=== PATIENT | female | born 1975 | race Caucasian/White ===

== ENCOUNTER → 2019-08-10 12:40 | Outpatient (CLI) | payer OTHER, SELFPAY ==
--- NOTE | ~2019-08-10 | MM_ITS ---
EXAMINATION: MM scrn rob implant BI w tu HISTORY: Screening mammogram TECHNIQUE: Craniocaudal and mediolateral oblique 3-D tomosynthesis images with implant displacement a nd synthetic 2-D images were generated. Craniocaudal and mediolateral oblique views of the breasts wi thout implant displacement were obtained using full field digital mammography. CAD analysis was submi tted and interpreted. COMPARISON: 06/17/2018 BREAST PARENCHYMAL COMPOSITION: The breasts are heterogeneously dense, which may obscure small masses . FINDINGS: There are bilateral subpectoral silicone implants. There is no evidence of suspicious mass, calcification, or architectural distortion to suggest malignancy in either breast. There has been no suspicious interval change. IMPRESSION: 1. No mammographic evidence of malignancy. 2. Recommend routine screening mammography in one year. BI-RADS Category 1: Negative Reviewed, dictated and finalized at location A.
== END ==
PROVIDERS: Visit Provider Obstetrics & Gynecology
DX: Z12.31 Encounter for screening mammogram for malignant neoplasm of breast (principal)
CPT/HCPCS: 77063; 77067

== ENCOUNTER → 2020-09-02 14:06 | Outpatient (CLI) | payer OTHER, SELFPAY ==
--- NOTE | ~2020-09-02 | MM_ITS ---
EXAMINATION: MM scrn rob implant BI w tu HISTORY: Screening mammogram TECHNIQUE: Craniocaudal and mediolateral oblique 3-D tomosynthesis images with implant displacement a nd synthetic 2-D images were generated. Craniocaudal and mediolateral oblique views of the breasts wi thout implant displacement were obtained using full field digital mammography. CAD analysis was submi tted and interpreted. COMPARISON: 08/10/2019, 06/17/2018 BREAST PARENCHYMAL COMPOSITION: The breasts are heterogeneously dense, which may obscure small masses . FINDINGS: There is no evidence of suspicious mass, calcification, or architectural distortion to sugg est malignancy in either breast. There has been no suspicious interval change. IMPRESSION: 1. No mammographic evidence of malignancy. 2. Recommend routine screening mammography in one year. BI-RADS Category 1: Negative Reviewed, dictated and finalized at location A.
== END ==
PROVIDERS: Visit Provider Obstetrics & Gynecology
DX: Z12.31 Encounter for screening mammogram for malignant neoplasm of breast (principal)
CPT/HCPCS: 77063; 77067

== ENCOUNTER → 2021-10-24 09:49 | Outpatient (CLI) | payer OTHER, SELFPAY ==
--- NOTE | ~2021-10-24 | MM_ITS ---
EXAMINATION: MM scrn rob implant BI w tu HISTORY: Screening mammogram TECHNIQUE: Craniocaudal and mediolateral oblique 3-D tomosynthesis images with implant displacement a nd synthetic 2-D images were generated. Craniocaudal and mediolateral oblique views of the breasts wi thout implant displacement were obtained using full field digital mammography. CAD analysis was submi tted and interpreted. COMPARISON: 09/02/2020, 08/10/2019, 06/17/2018 BREAST PARENCHYMAL COMPOSITION: The breasts are heterogeneously dense, which may obscure small masses . FINDINGS: There is no evidence of suspicious mass, calcification, or architectural distortion to sugg est malignancy in either breast. There has been no suspicious interval change. IMPRESSION: 1. No mammographic evidence of malignancy. 2. Recommend routine screening mammography in one year. BI-RADS Category 1: Negative Reviewed, dictated and finalized at location A.
== END ==
PROVIDERS: PCP Family Medicine; Visit Provider Obstetrics & Gynecology
DX: Z12.31 Encounter for screening mammogram for malignant neoplasm of breast (principal)
CPT/HCPCS: 77063; 77067

== ENCOUNTER 2021-12-29 14:21 | Outpatient (CLI) | payer OTHER, SELFPAY ==
[2021-12-29 14:46] LABS: Basophils Absolute Auto 0.1 K/mm3 (0.0-0.1); Basophils Percent Auto 0.9 % (0.2-1.2); Eosinophils Absolute Auto 0.1 K/mm3 (0-0.3); Eosinophils Percent Auto 1.4 % (0-4.4); Hematocrit 41.4 % (37.0-47.0); Hemoglobin 13.6 g/dL (12.0-15.0); Immature Granulocyte Absolute 0.01 K/mm3 (0.00-0.031); Immature Granulocyte Percent A 0.2 % (0-0.5); Lymphocytes Absolute Auto 2.82 K/mm3 (0.9-3.2); Lymphocytes Percent Auto 42.8 % (18.3-44.2); Mean Corpuscular HGB Conc 32.9 g/dl (32-36); Mean Corpuscular Hemoglobin 29.2 pg (26-34); Mean Corpuscular Volume 88.8 fl (80-100); Mean Platelet Volume 9.8 fl (7.4-10.4); Monocytes Absolute Auto 0.5 K/mm3 (0.1-0.6); Monocytes Percent Auto 7.7 % (2.6-8.5); Neutrophils Absolute Auto 3.1 K/mm3 (1.3-6.7); Platelet Count Result 281 k/mm3 (150-375); Red Blood Count 4.66 M/mm3 (4.2-5.4); Red Cell Distribution Width 12.9 % (11.5-14.5); White Blood Count 6.6 K/mm3 (4.5-10.0)
== END 2021-12-29 14:22 | disposition home or self-care (01) ==
PROVIDERS: PCP Family Medicine; Visit Provider Obstetrics & Gynecology
DX: N92.6 Irregular menstruation, unspecified (principal)
CPT/HCPCS: 36415; 85025; 86850; 86900; 86901

== ENCOUNTER 2022-01-02 00:11 | Day surgery (SDC) | payer OTHER, SELFPAY ==
[2021-12-29 11:18] VITALS: BMI 24.2
--- NOTE | 2021-12-29 11:29 | PC.NURSE ---
Report to the Outpatient Waiting Room, entrance under the green pavilion located off [facility], at time 0730 on date _01/02/22. OR Time: 0930__. - You and your visitor will be asked to self-screen and do not enter if you have any COVID symptoms. - Only one visitor and NO children visitors are allowed at this time. - The patient visitor is requested to leave or wait in car when not with patient due to restrictions. - A mask is required within the hospital. Patients may have clear liquids (water, carbonated beverages, clear teas, apple juice) until 3 hours prior to surgery with a maximum of 20 ounces. - No food from midnight until time of surgery - Infants may have breast milk until 4 hours before surgery, formula 6 hours prior to surgery. - Children will be allowed to drink immediately following surgery. If applicable, please bring a bottle or sippy cup to assist with drinking. Juice, water, soda, and popsicles are readily available. For infants on formula, please bring formula the day of surgery. Pacifiers are allowed. Take the following medications with a SIP of water the morning of surgery: wellbutrin, celexa_ Medications to discontinue per physician _vitamins, supplements_ Date to take last dose___12/30/21 Please no make-up, nail lebanese, hairspray, perfume, deodorant, or body powder the day of surgery. No jewelry (including any body piercings) or valuables the day of surgery, leave them at home. Please take a shower or bath the night before, or the morning of, surgery with an antibacterial soap. Wear comfortable, loose fitting clothing. Children are encouraged to wear pajamas. - Jewelry must be removed prior to entering the operating room. Rings and piercings that are not removed may be cut off. - The hospital will not accept responsibility for valuables. - Please leave all valuables, including medications, at home the day of surgery. If you are going home after surgery, a licensed driver operator must drive you home. - NO public transportation without another adult. - We recommend that an adult stay with you for 24 hours following discharge. - We also recommend that you do not drive, make important decision, drink alcoholic beverages, or take any drugs that were not prescribed by your health care provider for at least 24 hours after your discharge time. For Pediatric surgeries, we recommend two adults accompany the child home (only one inside the building at this time). Follow any additional instructions given to you from your surgeon. If you or anyone in your household have experienced Covid symptoms in the past week, please notify your surgeon or the nurse liaison at the phone number below for possible testing. Telephone instructions given to Terra Garcia and asked if any additional questions and then verbalized understanding. Patient advised to call surgeon office or pre surgery nurse liaison [phone] if any additional questions.
--- NOTE | 2021-12-30 07:22 | PM.IMHP ---
H&P: HPI History of Present Illness Date/Time: 12/30/21 07:22 Chief Complaint: fibroid uterus. Bleeding refractory to medical therapy. Stress urinary continence family history of ovarian cancer Narrative: this 46-year-old female multiparous who admitted for robotic hysterectomy and probable bilateral salpingo-oophorectomy sec a as well as DVT secondary to fibroid uterus pelvic pain bleeding. She has family history of ovarian cancer and she is strongly consider removal of the ovaries. She understands that this would make her permanently postmenopausal and the psychologic and physiologic changes associated with that have been reviewed in great detail and will be reviewed again on admission. Risks and benefits of the procedure reviewed including not exclusive of , aspiration pneumonia bleeding, transfusion, perforation injury to bowel, bladder, ureters, or other internal organs with need for open laparotomy the risk of mesh has also been reviewed in great detail. She received the [employer] handout entitled hysterectomy as well as the de Josemanuel handout. She received the TVT handout and it was reviewed in great detail PMFSH Family History Family History Grandparent Cerebrovascular accident Mother Family history of malignant neoplasm of ovary Father Malignant neoplasm of prostate Other Family history of coronary artery disease Social History Social History Smoking packs per day: 0.5 Smoking cigarettes per day: 10.0 Years smoked: 15 Smoking pack-years: 7.50 Smoking status: Former smoker Tobacco type: cigarettes Smoking end date: 02/14/18 Alcohol intake: never Substance use: never Spiritual care concerns: No Meds Home Medications and Allergies Home Medications Medication Instructions Recorded Confirmed Type bupropion HCl 75 mg tablet 75 mg PO DAILY 12/29/21 12/29/21 History chromium picolinate 200 mcg capsule 200 mcg PO DAILY 12/29/21 12/29/21 History citalopram 40 mg tablet (Celexa) 40 mg PO DAILY 12/29/21 12/29/21 History fexofenadine 30 mg tablet 180 mg PO DAILY 12/29/21 12/29/21 History green tea leaf extract (Green Tea 1 cap PO DAILY 12/29/21 12/29/21 History capsule) magnesium 1 tablet PO DAILY 12/29/21 12/29/21 History Allergies Allergy/AdvReac Type Severity Reaction Status Date / Time codeine Allergy Unknown Nausea and Verified 12/29/21 11:20 Vomiting latex Allergy Unknown Rash Verified 12/29/21 11:19 NARCOTICS Allergy Unknown VOMIT Uncoded 09/02/17 15:48 HYDROCODONE BIT AdvReac Severe N/V Uncoded 09/02/17 15:48 Exam Const: General: cooperative, healthy appearing and comfortable Nutritional Appearance: average body habitus Orientation/consciousness: oriented to person, oriented to place and oriented to time Chest: Chest palpation & inspection: normal inspection of the chest Resp: Effort & Inspection: normal respiratory effort Cardio: Rate: regular rate Rhythm: regular rhythm GI: Inspection: normal to inspection : Speculum Exam - Vagina: normal appearance of the vagina Speculum Exam - Cervix: normal appearance of the cervix Bimanual exam- vagina & uterus: enlarged Bimanual Exam- Adnexa, other: normal adnexae Assessment and Plan Assessment and plan (1) Uterine fibroid: Code(s): D25.9 - Leiomyoma of uterus, unspecified Status: Acute (2) Pelvic pain: Code(s): R10.2 - Pelvic and perineal pain Status: Acute (3) Vaginal bleeding: Code(s): N93.9 - Abnormal uterine and vaginal bleeding, unspecified Status: Acute (4) RANDAL (stress urinary incontinence, female): Code(s): N39.3 - Stress incontinence (female) (male) Status: Acute Plan robotic total vaginal hysterectomy with possible bilateral salpingo-oophorectomy and tension-free vaginal tape
[2022-01-02] VITALS (12 sets, daily range): BP systolic 100–122; BP diastolic 54–72; PULSE 58–81; RESP 11–16; TEMP 36.2–36.7; O2SAT 93–100
--- NOTE | 2022-01-02 06:16 | WPDHPUPDATE1 ---
History and Physical Update Update Date/Time: 01/02/22 06:16 History and Physical has been reviewed, including an updated exam of the patient. There are NO changes in the patient's condition. Risks, benefits, and alternatives have been discussed and questions answered. Patient agrees to proceed with procedure.
[2022-01-02] MEDS: LACTATED RINGERS 1,000 ML 30 ML IV CONT ×2 (08:05→11:00)
[2022-01-02] MEDS: ACETAMINOPHEN 500 MG TABLET 1000 MG PO (08:06)
--- NOTE | 2022-01-02 08:12 | P.PNAN_ITS ---
Anes - Initial Pre Proc Eval Procedure: Operation Date: 01/02/22 09:30 Proposed Procedures p Robotic Assisted Total Vaginal Hysterectomy with Possible Bilateral Salpingo- Oophorectomy - Harris Akers MD s Tension Vaginal Taping - Harris Akers MD Date/Time: 01/02/22 08:12 Surgeon: Harris Akers MD Pre Op Diagnosis: irregular bleeding, fibroids , pelvic pain Patient Data Age: 46 Gender: F Height: 1.68 m Weight: 68 kg Allergies Allergy/AdvReac Type Severity Reaction Status Date / Time codeine Allergy Unknown Nausea and Verified 01/02/22 08:13 Vomiting latex Allergy Unknown Rash Verified 01/02/22 08:13 NARCOTICS Allergy Unknown VOMIT Uncoded 01/02/22 08:13 HYDROCODONE BIT AdvReac Severe N/V Uncoded 01/02/22 08:13 Home Medications Medication Instructions Recorded Confirmed Type bupropion HCl 75 mg tablet 75 mg PO DAILY 12/29/21 12/29/21 History chromium picolinate 200 mcg capsule 200 mcg PO DAILY 12/29/21 12/29/21 History citalopram 40 mg tablet (Celexa) 40 mg PO DAILY 12/29/21 12/29/21 History fexofenadine 30 mg tablet 180 mg PO DAILY 12/29/21 12/29/21 History green tea leaf extract (Green Tea 1 cap PO DAILY 12/29/21 12/29/21 History capsule) magnesium 1 tablet PO DAILY 12/29/21 12/29/21 History hydrocodone 5 mg-acetaminophen 325 1 tablet PO Q4H PRN pain #30 tabs 01/02/22 Rx mg tablet Patient hx anesthesia problems: none Family hx anesthesia problems: none Results Review: All pre-operative results and documents have been reviewed as part of the pre- operative evaluation. [facility] Past Medical History Medical History (Updated 01/02/22 @ 08:13 by Harris Lombardo MD) Anxiety Surgical History Surgical History (Updated 01/02/22 @ 08:13 by Harris Lombardo MD) H/O sinus surgery Family History Family History Grandparent Cerebrovascular accident Mother Family history of malignant neoplasm of ovary Father Malignant neoplasm of prostate Other Family history of coronary artery disease Social History Social History Smoking packs per day: 0.5 Smoking cigarettes per day: 10.0 Years smoked: 15 Smoking pack-years: 7.50 Smoking status: Former smoker Tobacco type: cigarettes Smoking end date: 02/14/18 Alcohol intake: never Substance use: never Living arrangements: with family Spiritual care concerns: No Anes - Eval Final PreProcedure Day of Procedure 01/02/22 08:12 Patient weight: normal Heart: regular rate and rhythm Lungs: clear to auscultation Airway: Mallampati scale class 1 Neurological: alert and oriented Last oral intake: >/= 8 hours ASA classification: II Emergent: no Anesthesia type and monitoring: general ETT and standard monitoring Results Review: All pre-operative results and documents have been reviewed as part of the pre- operative evaluation. Informed Consent: The patient's anesthetic plan and its attendant risks and benefits were discussed with the patient/family/POA. Questions were solicited and answers provided to the satisfaction of the patient/family/POA.
[2022-01-02] MEDS: KETOROLAC 15 MG/ML VIAL (*BKC) IV PUSH (08:40)
[2022-01-02] MEDS: SCOPOLAMINE 1.5 MG PATCH TRANSDERM (08:53)
[2022-01-02] MEDS: ceFAZolin 2 GM/D5W 50 ML 2 GM/50 ML BAG IVPB (09:37)
--- NOTE | 2022-01-02 10:54 | W.PM.PROC2 ---
Procedure Note - Detailed Date of Procedure 01/02/22 Pre-op Diagnosis irregular bleeding, fibroids , pelvic pain,valerio Post-op Diagnosis Same Procedure Performed Robotic total vaginal hysterectomy and bilateral salpingo-oophorectomy. Cystoscopy. Tension-free vaginal tape Surgeon Harris Akers MD Anesthesia General Indications This is a 46-year-old female with a family history of breast cancer a fibroid uterus and stress urinary incontinence. Findings Large fibroid uterus. Normal-appearing ovaries and tubes. Overactive urethra Description of Procedure The patient was prepped draped in the normal sterile fashion placed in the dorsal lithotomy position. Under excellent general trach anesthesia weighted speculum was placed in posterior fornix vagina. Anterior lip of the cervix grasped with a single-tooth tenaculum. Uterus sounded to 10cm. Serial dilatation with fragmented dilators performed followed by the passage of a 10. SHRUTHI and the 3. Cold cup. Next the 16 British catheter was placed in the bladder. The weighted speculum were was removed and the gloves were changed. A supraumbilical incision made. The Veress needle passed in the abdomen. The abdomen filled with CO2 gas to 15 of mercury. The 8mm trocar advanced in the abdomen. Downside visualized no injury seen. Gas reattached. Patient placed in Trendelenburg and left and right lateral quadrant incisions made. These were advanced under direct visualization assuring no injury. A right upper quadrant incision made and the 8mm trocar advanced under direct visualization assuring no injury. The robot was docked. Attention was turned to the mortgage loan counselor. The left round ligament was grasped, burned, cut. Anteriorly a bladder flap was formed by sharply dissecting the peritoneum and reflecting the bladder caudally away from the cervix to the opposite round ligament which was clamped, burned, cut. Next the left infundibulopelvic structure was skeletonized. This was clamped, burned, cut and brought to the level of previously cut round ligament. Removing the right adnexa the infundibulopelvic structure on the right skeletonized. This was clamped, burned, cut and brought to level of previously cut round ligament. Next the cardinal broad ligaments on the left were serially skeletonized clamping burning cutting and hugging the cervix and uterus until the tortuous blood vessels on the left could be seen. These were individually clamped, burned, cut. Next the cardinal broad ligaments on the right were serially skeletonized clamping burning cutting and hugging the cervix and uterus. Once the uterine vessels could be seen on the right these were individually clamped, burned, cut. Blanching of the uterus was seen. A large fibroid and a pedunculated form was seen on the uterus. The uterus ovaries tubes were passed through the vagina after the colpotomy incision was made. The vagina was closed with continuous running 0V lock from lateral edge to lateral edge back to the midline. Irrigation undertaken until clear. All pedicles appeared dry. The instruments removed from the vagina. The robot was undocked. The gas removed from the abdomen. The incisions closed with 4-0 Monocryl and glue after gas removed from the abdomen. Attention was then turned to the TVT portion. The 16 British catheter was directed with a urethral guide. An infra urethral incision made at the midportion and this the lateral bladder space is emptied by ball blunt dissection by bilaterally. The TVT device was passed into the right retropubic bladder space after the urethra had been retracted to the opposite side brought up through with 30 degree angle through the fascia and skin. The urethra was retracted to the opposite side and this was repeated on the contralateral side. The 16 British catheter was removed and a 30degree cystoscope was inserted. No injury seen. The catheter was then replaced. The tension-free tape was brought u
[2022-01-02] MEDS: fentaNYL CITRATE INJ (*CRX) 100 MCG/2 ML VIAL 25 MCG IV PUSH (11:38)
--- NOTE | 2022-01-02 12:34 | ADMGEN ---
1230-This patient, Terra Garcia, was admitted to OB 2nd Floor Room 283-00. Patient/family oriented to hospital policies and general routines including ID bracelet, bed and alarms, visiting hours, pain management, procedures, bathroom and other care routines, personal items, smoking policy, room service/diet, and visiting hours. Information on how to activate the Rapid Response Team has been discussed. Patient/Family are encouraged to report perceived risks to care and to ask questions if they do not understand what they are told or what they should do.
[2022-01-02] MEDS: DEXTROSE 5%/LACTATED RINGERS 1,000 ML 125 ML IV CONT (12:43)
[2022-01-02] MEDS: KETOROLAC 30 MG/ML VIAL (*BKC) IV PUSH (12:54)
[2022-01-02] MEDS: HYDROcodone/acetaminophen (*CRX) 5-325 MG TABLET 1 TAB PO ×2 (16:28→21:15)
[2022-01-02] MEDS: DOCUSATE SODIUM 100 MG CAPSULE PO (16:28)
[2022-01-02] MEDS: IBUPROFEN 600 MG TABLET PO (21:15)
[2022-01-03] VITALS: BP 109/61; PULSE 80; RESP 16; TEMP 36.9
[2022-01-03] MEDS: diphenhydrAMINE HCl CAP 25 MG CAPSULE (00:07)
[2022-01-03 04:45] VITALS: BP 105/64; PULSE 85; RESP 16; TEMP 36.9
[2022-01-03] MEDS: IBUPROFEN 600 MG TABLET PO (04:48)
[2022-01-03] MEDS: HYDROcodone/acetaminophen (*CRX) 5-325 MG TABLET 1 TAB PO ×2 (04:48→09:50)
[2022-01-03 05:38] LABS: Basophils Absolute Auto 0.1 K/mm3 (0.0-0.1); Basophils Percent Auto 0.3 % (0.2-1.2); Eosinophils Percent Auto 0.1 % (0-4.4); Hematocrit 36.8 % (37.0-47.0); Hemoglobin 12.3 g/dL (12.0-15.0); Immature Granulocyte Absolute 0.06 K/mm3 (0.00-0.031); Immature Granulocyte Percent A 0.4 % (0-0.5); Lymphocytes Absolute Auto 2.52 K/mm3 (0.9-3.2); Lymphocytes Percent Auto 17.6 % (18.3-44.2); Mean Corpuscular HGB Conc 33.4 g/dl (32-36); Mean Corpuscular Hemoglobin 29.1 pg (26-34); Mean Corpuscular Volume 87.2 fl (80-100); Mean Platelet Volume 10.4 fl (7.4-10.4); Monocytes Absolute Auto 1.1 K/mm3 (0.1-0.6); Monocytes Percent Auto 7.9 % (2.6-8.5); Neutrophils Absolute Auto 10.5 K/mm3 (1.3-6.7); Neutrophils Percent Auto 73.7 % (45.5-73.1); Platelet Count Result 261 k/mm3 (150-375); Red Blood Count 4.22 M/mm3 (4.2-5.4); Red Cell Distribution Width 12.9 % (11.5-14.5); White Blood Count 14.3 K/mm3 (4.5-10.0)
--- NOTE | 2022-01-03 07:12 | P.DS_ITS ---
DS: Admitting Diagnosis Discharge Date 01/03/2022 Admitting Diagnosis symptomatic uterine fibroids DS: Discharge Diagnosis Discharge Diagnosis (1) RANDAL (stress urinary incontinence, female): Code(s): N39.3 - Stress incontinence (female) (male) Status: Acute (2) Vaginal bleeding: Code(s): N93.9 - Abnormal uterine and vaginal bleeding, unspecified Status: Acute (3) Pelvic pain: Code(s): R10.2 - Pelvic and perineal pain Status: Acute (4) Uterine fibroid: Code(s): D25.9 - Leiomyoma of uterus, unspecified Status: Acute DS: Summary Hospital Course Reason for hospitalization: patient was admitted for robotic hysterectomy bilateral salpingo-oophorectomy and TVT Hospital Course: patient was admitted for robotic total vaginectomy bilateral salpingo- oophorectomy and tension-free vaginal tape. The procedure was unremarkable. Her 24hour course was unremarkable as well. She remained afebrile. She was up, voiding without difficulty, ambulating, generally without complaints. Time Spent with Patient Time attestation: Total time spent providing and/or coordinating discharge services: DS: Data Data Completed and Pending Pending studies at discharge: Pending at discharge 01/02/22 10:20 Surgical [PTH] Routine Labs on day of discharge: Labs from last 24 hours 01/03/22 04:43 WBC 14.3 H RBC 4.22 Hgb 12.3 Hct 36.8 L MCV 87.2 MCH 29.1 MCHC 33.4 RDW 12.9 Plt Count 261 MPV 10.4 Immature Gran % (Auto) 0.4 Neut % (Auto) 73.7 H Lymph % (Auto) 17.6 L Mclean % (Auto) 7.9 Eos % (Auto) 0.1 Baso % (Auto) 0.3 Lymph # (Auto) 2.52 Mclean # (Auto) 1.1 H Eos # (Auto) 0.0 Baso # (Auto) 0.1 Abs Immat Gran (auto) 0.06 H Absolute Neuts (auto) 10.5 H Absolute Nucleated RBC 0.0 Nucleated RBC % 0.0 Discharge Plan Discharge Patient Disposition: Home, Self-Care Discharge Instructions: Remove the Scopolamine patch that was placed behind your ear in 72 hours or less. Wash your hands after touching. Stand Alone Forms: General Discharge Instructions Follow-up/Referrals: Harris Marquis MD [Physician] - Discharge Medications: New hydrocodone-acetaminophen 5-325 mg tablet 1 tablet PO Q4H PRN (Reason: pain) Qty: 30 0RF Continued citalopram [Celexa] 40 mg Tablet 40 mg PO DAILY chromium picolinate 200 mcg Capsule 200 mcg PO DAILY fexofenadine 30 mg Tablet 180 mg PO DAILY bupropion HCl 75 mg Tablet 75 mg PO DAILY Rx Instructions: administer 6 hours apart Green Tea Capsule 1 cap PO DAILY magnesium Tablet 1 tablet PO DAILY
--- NOTE | 2022-01-03 07:15 | PM.GYNPNOP ---
POULTRY PROCESSOR - A/P Postoperative Procedures: Procedures Operation Date: 01/02/22 09:30 Actual Procedure Side Surgeon p Robotic Assisted Total Vaginal Hysterectomy with Bilateral Salpingo-Oophorectomy, Removal of Intrauterine Device Not Applicable Harris Akers MD s Tension Vaginal Taping Not Applicable Harris Akers MD Postoperative day: 1 Postoperative status: doing well Postoperative plan: routine post-op care, advance diet and discharge Time Spent With Patient Time: Total time spent is greater than 50% in coordination of care (as documented) at patient's floor/unit and/or counseling patient: Time with patient: less than 15 minutes POULTRY PROCESSOR- PN:Subj Post-Op Subjective Date/time seen: 01/03/22 07:15 Subjective: patient has no complaints and patient desires discharge POULTRY PROCESSOR - PN: Obj Data Vital Signs Vital Signs: Vital Signs - 24 hr 01/02/22 08:49 01/02/22 11:00 01/02/22 11:15 Temperature 98.1 F 97.1 F L Pulse Rate 58 L 70 81 Respiratory Rate 16 11 L 16 Blood Pressure 109/66 109/66 122/72 Pulse Oximetry 99 99 100 Oxygen Delivery Room Air Simple Face Mask Simple Face Mask Oxygen Flow Rate 8 8 01/02/22 11:25 01/02/22 11:30 01/02/22 11:45 Temperature Pulse Rate 74 76 Respiratory Rate 16 12 Blood Pressure 111/62 107/55 L Pulse Oximetry 98 98 93 Oxygen Delivery Room Air Room Air Room Air Oxygen Flow Rate 01/02/22 12:00 01/02/22 12:15 01/02/22 12:40 Temperature Pulse Rate 76 73 64 Respiratory Rate 12 12 14 Blood Pressure 106/57 L 100/60 Pulse Oximetry 96 95 97 Oxygen Delivery Room Air Room Air Room Air Oxygen Flow Rate 01/02/22 12:40 01/02/22 16:09 01/02/22 16:59 Temperature 97.5 F L 97.8 F Pulse Rate 64 72 72 Respiratory Rate 14 16 16 Blood Pressure 108/62 110/65 Pulse Oximetry 97 98 98 Oxygen Delivery Room Air Oxygen Flow Rate 01/02/22 19:50 01/03/22 00:00 01/03/22 04:45 Temperature 98.1 F 98.4 F 98.4 F Pulse Rate 76 80 85 Respiratory Rate 16 16 16 Blood Pressure 102/54 L 109/61 105/64 Pulse Oximetry Oxygen Delivery Oxygen Flow Rate Intake/Output Intake/Output: Intake & Output 12/31/21 01/01/22 01/02/22 01/03/22 23:59 23:59 23:59 23:59 Intake Total 2970 700 Output Total 2335 1250 Balance 635 -550 Meds/Results Medications: Active Medications Generic Name Dose Route Start Last Admin Trade Name Freq PRN Reason Stop Dose Admin Hydrocodone Bitart/Acetaminophen 1 tab 01/02/22 12:26 01/03/22 04:48 Hydrocodone/Acetaminophen (*Crx) 5-325 Mg Tablet PO 1 tab Q3H PRN Administration Pain Rated 5 or Less Hydrocodone Bitart/Acetaminophen 1 tab 01/02/22 12:26 Hydrocodone/Acetaminophen (*Crx) 10-325 Mg Tablet PO Q3H PRN Pain Rated 6 or Greater Docusate Sodium 100 mg 01/02/22 17:00 01/02/22 16:28 Docusate Sodium 100 Mg Capsule PO 100 mg BID MIKEL Administration Enoxaparin Sodium 40 mg 01/03/22 09:00 Enoxaparin 40 Mg/0.4 Ml Syringe SUB-Q DAILY MIKEL Ibuprofen 600 mg 01/02/22 12:26 01/03/22 04:48 Ibuprofen 600 Mg Tablet PO 600 mg Q6H PRN Administration Cramping Ketorolac Tromethamine 30 mg 01/02/22 12:26 01/02/22 12:54 Ketorolac 30 Mg/Ml Vial (*Bkc) IV PUSH 01/07/22 12:25 30 mg Q6H PRN Administration Pain Rated 4-6 Naloxone HCl 0.1 mg 01/02/22 12:26 Naloxone Hcl 0.4 Mg/Ml Vial IV PUSH Q2M PRN Respiratory rate less than 10 Ondansetron HCl 4 mg 01/02/22 12:26 Ondansetron Inj 4 Mg/2 Ml Vial IV PUSH Q6H PRN Nausea And Vomiting Simethicone 80 mg 01/02/22 12:26 Simethicone 80 Mg Tab.Chew PO Q2H PRN Gas Labs CBC & Chem 7: 01/03/22 04:43 Labs: Laboratory Results - last 24 hr 01/03/22 04:43 WBC 14.3 H RBC 4.22 Hgb 12.3 Hct 36.8 L MCV 87.2 MCH 29.1 MCHC 33.4 RDW 12.9 Plt Count 261 MPV 10.4 Immature Gran % (Auto) 0.4 Neut % (Auto) 73.7 H Lymph % (Auto) 17.6 L
--- NOTE | 2022-01-03 08:23 | PC.NURSE ---
Assisted patient up to the bathroom but she was unable to void, assisted back to bed. Tolerated well. Told to call out when she felt the need to void.
[2022-01-03 08:25] VITALS: BP 104/55; PULSE 82; RESP 18; TEMP 36.3; O2SAT 98
[2022-01-03] MEDS: ENOXAPARIN 40 MG/0.4 ML SYRINGE SUB-Q (09:49)
== END 2022-01-03 10:15 | disposition home or self-care (01) ==
LOC: ANHSURGERY 10:04 → ANHOB2 12:28
PROVIDERS: PCP Family Medicine; Visit Provider Obstetrics & Gynecology
PROC: (CPT 58552; principal; 2022-01-02 09:30)
PROC: 0TSD0ZZ Reposition Urethra, Open Approach (ICD-10-PCS; CPT 58552; 2022-01-02 09:30)
DX: N93.9 Abnormal uterine and vaginal bleeding, unspecified (principal); N83.02 Follicular cyst of left ovary; D25.1 Intramural leiomyoma of uterus; N72 Inflammatory disease of cervix uteri; N39.3 Stress incontinence (female) (male); R10.2 Pelvic and perineal pain; Z80.3 Family history of malignant neoplasm of breast; Z80.41 Family history of malignant neoplasm of ovary; Z87.891 Personal history of nicotine dependence
CPT/HCPCS: 58552; 57288; S2900; 36415; 85025; 88307; 99199; A9270; C1771; J0690; J1100; J1650; J1885; J2250; J2405; J2704; J2710; J3010; J7030; J7120; J7121

== ENCOUNTER → 2023-01-08 10:12 | Outpatient (CLI) | payer OTHER, SELFPAY ==
--- NOTE | ~2023-01-08 | MM_ITS ---
EXAMINATION: MM scrn rob implant BI w tu HISTORY: Screening mammogram TECHNIQUE: Craniocaudal and mediolateral oblique 3-D tomosynthesis images with implant displacement a nd synthetic 2-D images were generated. Craniocaudal and mediolateral oblique views of the breasts wi thout implant displacement were obtained using full field digital mammography. CAD analysis was submi tted and interpreted. COMPARISON: 10/24/2021, 09/02/2020, 08/10/2019 BREAST PARENCHYMAL COMPOSITION: The breasts are heterogeneously dense, which may obscure small masses . FINDINGS: RIGHT BREAST: There is possible architectural distortion in the middle third of the upper outer quadr ant of the breast. In addition, there is a possible mass in the posterior third of the upper breast o n the implant displaced views. LEFT BREAST: There is no evidence of suspicious mass, calcification, or architectural distortion to s uggest malignancy. There has been no significant interval change. IMPRESSION: 1. Possible architectural distortion and mass of the right breast. 2. Additional mammographic views and possible breast ultrasound are recommended. BI-RADS Category 0: Incomplete: Needs additional imaging evaluation. Reviewed, dictated and finalized at location A. IMPRESSION: 1. Possible architectural distortion and mass of the right breast. 2. Additional mammographic views and possible breast ultrasound are recommended . BI-RADS Category 0: Incomplete: Needs additional imaging evaluation.
== END ==
PROVIDERS: PCP Obstetrics & Gynecology; Visit Provider Obstetrics & Gynecology
DX: Z12.31 Encounter for screening mammogram for malignant neoplasm of breast (principal); Z98.82 Breast implant status; R92.8 Other abnormal and inconclusive findings on diagnostic imaging of breast
CPT/HCPCS: 77063; 77067

== ENCOUNTER 2023-02-02 09:15 | Outpatient (CLI) | payer OTHER, SELFPAY ==
--- NOTE | ~2023-02-02 | MMUS_ITS ---
EXAMINATION: MM diag rob implant RT w tu, US breast RT complete HISTORY: Respiratory architectural distortion on prior screening mammogram. TECHNIQUE: Additional 3-D tomosynthesis images of the right breast were performed and synthetic 2-D i mages were generated. CAD analysis was submitted and interpreted. High resolution complete right quoc st ultrasound was performed. COMPARISON: 01/08/2023 BREAST PARENCHYMAL COMPOSITION: The breasts are heterogeneously dense, which may obscure small masses FINDINGS: MAMMOGRAPHIC FINDINGS: There is a right subpectoral breast implant. There are no discrete suspicious cluster of calcificatio ns or definite architectural distortion. There is a mass in the upper central aspect of the right mark ast posteriorly adjacent to the chest wall. ULTRASOUND: Complete US of all 4 quadrants of the right breast and retroareolar region was reviewed. At 12:00, 4 cm from the nipple there is a complicated cyst with low level internal echoes measuring 1 cm, corresp onding to the mammographic finding. At 3:00 near the arterial lobe there is a 4 mm minimally complica nir cyst. At 10:00, 5 cm from the nipple adjacent to the breast implant there is a slightly irregular shaped hypoechoic mass measuring 5 x 4 x 3 mm just superficial to the breast implant. There is mixed posterior attenuation. No internal vascularity. IMPRESSION: 1. Right breast mass at 10:00, 5 cm from the nipple with slightly irregular margins and hypoechoic in ternal echotexture measuring 5 mm maximum dimension. 2. Ultrasound-guided right breast biopsy recommended. BI-RADS category 4, suspicious findings. Reviewed, dictated and finalized at location A. IMPRESSION: 1. Right breast mass at 10:00, 5 cm from the nipple with slightly irregular mar gins and hypoechoic internal echotexture measuring 5 mm maximum dimension. 2. Ultrasound-guided right breast biopsy recommended. BI-RADS category 4, suspicious findings.
== END 2023-02-02 09:16 ==
PROVIDERS: PCP Obstetrics & Gynecology; Visit Provider Obstetrics & Gynecology
DX: R92.8 Other abnormal and inconclusive findings on diagnostic imaging of breast (principal)
CPT/HCPCS: 76641; 77061; 77065; G0279

== ENCOUNTER 2023-08-18 07:23 | Emergency (ER) | payer OTHER, SELFPAY ==
[2023-08-18 07:39] VITALS: BP 132/83; PULSE 76; PULSE 82; RESP 16; RESP 20; TEMP 36.5; O2SAT 100
[2023-08-18] MEDS: methylPREDNISolone SOD SUCC 40 MG VIAL IV PUSH (07:57)
[2023-08-18] MEDS: FAMOTIDINE 20 MG/2 ML VIAL IV PUSH (07:57)
[2023-08-18 08:09] LABS: Strep Group A RT-PCR NOT DETECTED (Negative)
--- NOTE | 2023-08-18 08:11 | ED.GENADULT ---
HPI - General Adult General Chief complaint: Allergic Reaction Stated complaint: alletgic reation Time Seen by Provider: 08/18/23 07:28 History of Present Illness HPI narrative: Patient is a 47-year-old female who presents ER with concerns for swelling to the right lower lip. She woke up this morning and noticed that her right lower lip was swollen and she now feels like she has some tingling to her right face. She has not started any new medications. No difficulty breathing or swelling but does have some sore throat and a little discomfort to the right neck. No chest pain or chest pressure. Has history of sensitive skin. She does have a blemish to the right lower lip that has been ongoing over last 2-3 days. Denies any biting of the lip. No wheezing. No itching. Patient did take a Benadryl. Related Data Home Medications Medication Instructions Recorded Confirmed bupropion HCl 75 mg tablet 75 mg PO DAILY 12/29/21 12/29/21 chromium picolinate 200 mcg capsule 200 mcg PO DAILY 12/29/21 12/29/21 citalopram 40 mg tablet (Celexa) 40 mg PO DAILY 12/29/21 12/29/21 fexofenadine 30 mg tablet 180 mg PO DAILY 12/29/21 12/29/21 green tea leaf extract (Green Tea 1 cap PO DAILY 12/29/21 12/29/21 capsule) magnesium 1 tablet PO DAILY 12/29/21 12/29/21 Allergies Allergy/AdvReac Type Severity Reaction Status Date / Time codeine Allergy Intermediate Nausea and Verified 01/02/22 08:14 Vomiting latex Allergy Intermediate Rash Verified 01/02/22 08:14 HYDROCODONE BIT AdvReac Severe N/V Uncoded 01/02/22 08:13 Review of Systems Review of Systems: All systems reviewed & are unremarkable except as noted in HPI and below Constitutional: Constitutional: Reports no additional constitutional complaints ENT: Denies nasal congestion and Denies sore throat Cardiovascular: Cardiovascular: Reports no additional cardiovascular complaints Respiratory: Respiratory: Reports no additional respiratory complaints Gastrointestinal: Gastrointestinal: Reports no additional gastrointestinal complaints Integumentary/Breasts: Skin/Breast: Reports erythema, Denies rash and Denies skin ulcer Neurologic: Denies headache(s) and Denies focal weakness Comments: right facial tingling Allergic/Immunologic: Allergic/Immunologic: Reports lip swelling, Denies throat swelling, Denies tongue swelling and Denies wheezing PMFSH Past Medical History Medical History (Updated 08/18/23 @ 09:40 by Huan Aburto MD) Anxiety Surgical History Surgical History (Updated 01/02/22 @ 08:13 by Harris Lombardo MD) H/O sinus surgery Family History Family History Grandparent Cerebrovascular accident Mother Family history of malignant neoplasm of ovary Father Malignant neoplasm of prostate Other Family history of coronary artery disease Social History Social History Smoking packs per day: 0.5 Smoking cigarettes per day: 10.0 Years smoked: 15 Smoking pack-years: 7.50 Smoking status: Former smoker Tobacco type: cigarettes Smoking end date: 02/14/18 Alcohol intake: never Substance use: never Living arrangements: with family Spiritual care concerns: No Exam Narrative: GENERAL: Well-appearing, well-nourished, and in no acute distress. HEAD: Normocephalic, atraumatic. EYES: PERRL and EOMI. ENT: Mucous membranes moist. Mild edema right lower lip just superior to a skin blemish. Blemish has mild induration. No dental abscess. Normal appearing posterior oropharynx without tonsillar hypertrophy or uvular edema. NECK: Mild right-sided lymphadenopathy along the anterior cervical chain. CHEST: Clear to auscultation. No respiratory distress. HEART: Regular rate and rhythm. Normal peripheral pulses. EXTREMITIES: Normal range of motion. No edema. NEURO: Alert and oriented x3. PSYCH: Normal mood and affect.
--- NOTE | 2023-08-18 08:18 | PC.NURSE ---
Pt ambulatory independently to restroom. No gait abnormalities noted.
[2023-08-18 08:20] LABS: Influenza A QL RT-PCR Negative (Negative); Influenza B QL RT-PCR Negative (Negative); RSV RNA, RT-PCR Negative (Negative); SARS-CoV-2 RNA PCR Negative (Negative)
[2023-08-18 09:22] VITALS: BP 112/78; PULSE 78; RESP 16; O2SAT 99
[2023-08-18 10:19] VITALS: BP 125/90; PULSE 72; RESP 20; O2SAT 100
== END 2023-08-18 10:24 | disposition home or self-care (01) ==
PROVIDERS: Emergency Provider Emergency Medicine; PCP Family Medicine
DX: R22.0 Localized swelling, mass and lump, head (principal); Z20.822 Contact with and (suspected) exposure to COVID-19; F41.9 Anxiety disorder, unspecified; Z87.891 Personal history of nicotine dependence
CPT/HCPCS: 87637; 87651; 96374; 96375; 99284; J2919